=== PATIENT | female | born 1990 | race African-American/Black ===

== ENCOUNTER 2016-07-02 14:11 | Emergency (ER) | payer OTHER ==
[~2016-07-02] VITALS: Ht 170.2 cm; Wt 141.0 kg
[2016-07-02 15:05] VITALS: BP 147/63
== END 2016-07-02 21:22 | disposition left against medical advice (07) ==
LOC: ER 21:20
DX: Z53.21 Procedure and treatment not carried out due to patient leaving prior to being seen by health care provider (principal)

== ENCOUNTER 2019-01-03 11:45 | Emergency (ER) | payer MEDICAID, OTHER ==
[~2019-01-03] VITALS: Ht 170.2 cm; Wt 145.0 kg
[2019-01-03] MEDS ORDERED: KETOROLAC 30MG/ML VIAL IM ONE (12:30)
[2019-01-03 14:43] VITALS: BP 148/85
== END 2019-01-03 14:44 | disposition home or self-care (01) ==
LOC: ER 11:45
DX: M25.521 Pain in right elbow (principal); M25.511 Pain in right shoulder
CPT/HCPCS: 73030; 73070; 81025; 96372; 99283; J1885